=== PATIENT | male | born 1990 | race Caucasian/White ===

== ENCOUNTER 2018-07-17 10:54 | Emergency (ER) | payer SELFPAY ==
[~2018-07-17] VITALS: Ht 188 cm; Wt 72.6 kg
== END 2018-07-17 13:48 | disposition home or self-care (01) ==
LOC: ED 10:54
PROC: 2W3DX1Z Immobilization of Left Lower Arm using Splint (ICD-10-PCS; principal; 2018-07-17)
DX: S62.102A Fracture of unspecified carpal bone, left wrist, initial encounter for closed fracture (principal); S13.8XXA Sprain of joints and ligaments of other parts of neck, initial encounter; F17.200 Nicotine dependence, unspecified, uncomplicated; W18.30XA Fall on same level, unspecified, initial encounter
CPT/HCPCS: 29125; 72040; 73090; 99283-25